=== PATIENT | male | born 1935 | race African-American/Black ===

== ENCOUNTER 2021-09-26 13:00 | Emergency (ER) | payer MEDICAID, MEDICARE, OTHER ==
[~2021-09-26] VITALS: Ht 167.6 cm; Wt 91.0 kg
[2021-09-26] MEDS ORDERED: ACETAMINOPHEN 325MG TABLET PO ONE (14:00)
[2021-09-26 14:26] LABS: HEMATOCRIT. 41.2 % (42.0-52.0); HEMOGLOBIN. 13.7 g/dL (14.0-18.0); MEAN CORPUSCULAR HEMOGLOBIN 32.3 pg (28.0-32.0); RED BLOOD CELL COUNT 4.25 mill/uL (4.7-6.1); RED CELL DISTRIBUTION WIDTH 13.1 % (11.6-14.6)
[2021-09-26 14:30] LABS: CHLORIDE 110 mEq/L (98-107)
[2021-09-26 14:30] LABS: CLARITY URINE CLEAR (CLEAR); COLOR URINE YELLOW (YELLOW); KETONES URINE NEGATIVE (NEGATIVE); LEUKOCYTE ESTERASE URINE NEGATIVE (NEGATIVE); NITRITE URINE NEGATIVE (NEGATIVE); OCCULT BLOOD URINE NEGATIVE (NEGATIVE); PH URINE 5.5 (4.5-8.0); PROTEIN URINE NEGATIVE (NEGATIVE); SPECIFIC GRAVITY URINE 1.026 (1.005-1.030)
[2021-09-26 15:07] LABS: PLATELET ESTIMATE NORMAL
[2021-09-26 15:10] LABS: PLATELET 208 x1000/uL (130-400)
[2021-09-26] MEDS ORDERED: IBUP-2028 MT (15:46)
[2021-09-26 16:07] VITALS: BP 151/94
== END 2021-09-26 16:10 | disposition home or self-care (01) ==
LOC: ER 13:00
DX: M48.00 Spinal stenosis, site unspecified (principal); M19.90 Unspecified osteoarthritis, unspecified site; I10 Essential (primary) hypertension
CPT/HCPCS: 36415; 74176; 80053; 81003; 82962; 85025; 99284